=== PATIENT | male | born 1990 | race African-American/Black ===

== ENCOUNTER 2022-10-09 01:02 | Emergency (ER) | payer SELFPAY ==
[2022-10-09 01:16] VITALS: BP 137/92; PULSE 119; RESP 18; TEMP 36.6; O2SAT 95; BMI 25.9
--- NOTE | 2022-10-09 02:19 | ED.MALEGU ---
HPI - Male Genitourinary General Chief complaint: Urogenital-Male Stated complaint: Medical/personal? Time Seen by Provider: 10/09/22 01:24 Source: patient Mode of arrival: ambulatory History of Present Illness HPI Narrative: 32-year-old male who has been having unprotected sex with a new partner for 5 days and states that approximately 2 days ago he began having burning on urination and noted a penile discharge and denies any testicular scrotal discomfort or any sores on the penis. Related Data Previous Rx's Medication Instructions Recorded doxycycline monohydrate 100 mg 100 mg PO BID 7 days #14 caps 10/09/22 capsule Allergies Allergy/AdvReac Type Severity Reaction Status Date / Time No Known Allergies Allergy Verified 10/09/22 01:15 Review of Systems Review of Systems: Pertinent positives and negatives as stated in the [facility] Past Medical History Source: nursing notes reviewed Social History Social History Advance Directives: No Advance Directives Information Provided: Yes Physical Exam Vital Signs: Vital Signs: Last Vital Signs Temp 98 F 10/09/22 01:16 Pulse 119 H 10/09/22 01:16 Resp 18 10/09/22 01:16 BP 137/92 H 10/09/22 01:16 Pulse Ox 95 10/09/22 01:16 O2 Del Method Room Air 10/09/22 01:16 BMI result Body Mass Index 25.9 VITAL SIGNS: Reviewed. GENERAL: Well developed, well nourished, in no acute distress. HEAD: Normocephalic/atraumatic EYES: PERRLA, EOMI LUNGS: Normal breath sounds. No adventitious sounds or accessory muscle use. CARDIOVASCULAR: Regular rate and rhythm without noted murmurs ABDOMEN: Soft, non-tender, non-distended with bowel sounds. SKIN: Inspection of the skin reveals no rashes NEUROLOGIC: Alert and oriented x 4. Strength and sensation to light touch were grossly intact x 4. Medical Decision Making Medical Decision Making MDM Narrative: 32-year-old male with history and clinical presentation most consistent with sexually transmitted infection, will obtain and urinary sample for testing of gonorrhea and chlamydia, but will otherwise empirically treat. Patient states he is already been in communication with his sexual partner. Low clinical suspicion for UTI. Patient will receive empiric treatment and was instructed to provide information so he could use the patient portal to follow-up on the results of his urine sample. Differential Diagnosis Differential Diagnoses: The differential diagnosis associated with the presentation includes Please see the discussion above Lab Data MDM Lab Attestation statement: I reviewed the patient's lab results. These results are pending Discharge Plan Discharge Clinical Impression: Urethritis Patient Disposition: Home, Self-Care Instructions: Sexually Transmitted Diseases (ED), Male Condom Use (ED), Safe Sex Practices (ED) Additional Instructions: 1. You must notify your sexual partner. 2. You will need to abstain from sexual relations for 1 week while you are being treated. 3. Please complete the entire course of antibiotics as prescribed I recommend that you get instructions for accessing the patient portal so you can follow-up on your results. return to the ER for any worsening symptoms. Prescriptions: New doxycycline monohydrate 100 mg capsule 100 mg PO BID 7 Days Qty: 14 0RF
[2022-10-09] MEDS: Doxycycline Monohydrate 100 MG CAPSULE PO (03:04)
[2022-10-09] MEDS: cefTRIAXone sodium 500 MG, Lidocaine HCl 1 % MPF 1 ML IM (03:06)
[2022-10-09 03:57] LABS: CT PCR DETECTED (Not Detect.); NG PCR NOT DETECTED (Not Detect.)
== END 2022-10-09 03:11 | disposition home or self-care (01) ==
PROVIDERS: Nurse Practitioner Family; Emergency Provider Student in an Organized Health Care Education/Training Program
DX: N34.2 Other urethritis (principal); R30.0 Dysuria; R36.9 Urethral discharge, unspecified
CPT/HCPCS: 0353U; 96372; 99282; 99284; J0696

== ENCOUNTER 2022-10-11 23:08 | Emergency (ER) | payer SELFPAY ==
[2022-10-11 23:16] VITALS: BP 128/70; PULSE 107; O2SAT 98; BMI 22.5
--- NOTE | 2022-10-11 23:21 | ED.PSYCH ---
HPI - Psych General Stated Complaint: ETOH INTOXICATION,WANT CRISIS EVAL PER EMS Time Seen by Provider: 10/11/22 23:16 Source: patient and EMS Mode of arrival: EMS Limitations: no limitations History of Present Illness HPI Narrative: Patient comes to the emergency room complaining of depression and alcohol intoxication. Patient requesting to be seen by behavioral health. Patient denies suicidal homicidal ideation. Patient states that he is going through some from times, going through divorce Related Data Previous Rx's Medication Instructions Recorded doxycycline monohydrate 100 mg 100 mg PO BID 7 days #14 caps 10/09/22 capsule Allergies Allergy/AdvReac Type Severity Reaction Status Date / Time No Known Allergies Allergy Verified 10/09/22 01:15 Review of Systems Review of Systems: Constitutional : No Weight loss, No Fever, No Chills, No Night Sweats, No Fatigue, No Malaise ENT/Mouth : No Hearing loss, No Ear Pain, No Nasal Congestion, No Sinus Pain, No Hoarseness, No sore throat, No Rhinorrhea, No Swallowing Difficulty Eyes: No Eye Pain, No Swelling, No Redness, No Foreign Body, No Discharge, No Vision Changes Cardiovascular : No Chest Pain, No SOB, No Dyspnea on Exertion, No Orthopnea, No Edema, No Palpitations Respiratory : No Cough, No Sputum, No Wheezing, No Smoke Exposure, No Dyspnea Gastrointestinal : No Nausea, No Vomiting, No Diarrhea, No Constipation, No abdominal Pain, No Hematochezia, No Melena Genitourinary : no irregular bleeding, No Dysuria, No Urinary Frequency, No Hematuria, No Urinary Incontinence, No Urgency, No Flank Pain, No Urinary Flow Changes, No Hesitancy Musculoskeletal : No joint pain, No Myalgias, No Joint Swelling Skin : No Skin Lesions, No rash Neuro : No Weakness, No Numbness, No Paresthesias, No Loss of Consciousness, No Dizziness, No Headache Psych : No anxiety, complaining of depression, denies suicidal or homicidal ideation, admits to drinking alcohol today Heme/Lymph: No Bruising, No Bleeding,No Lymphadenopathy Endocrine : No Polyuria, No Polydipsia, No Temperature Intolerance Physical Exam Const: Other: Appearance: Alert. Oriented X3. No acute distress. Eyes: Pupils equal, round and reactive to light. ENT: Pharynx normal. Neck: Normal inspection. Neck supple. No lymph nodes noted. No crepitus CVS: Normal heart rate and rhythm. Pulses normal. Normal S1 and S2 Respiratory: No respiratory distress. Breath sounds normal. No Wheezing. No rales Abdomen: Soft and nontender. No rigidity. No distention. Skin: Skin warm and dry. Normal skin color. Normal skin turgor. Extremities: No lower extremity edema. No Lacerations. No Rash Neuro: Oriented X 3. No motor deficit. No sensory deficit. Moving all extremities. No slurred speech. CN 2 through 12 grossly intact Psych: calm, cooperative, teary Course Course Course Narrative: -all of patient's labs pending -patient is not suicidal or homicidal, patient is calm and cooperative, not indicated -care team consult pending -physician observation started at 23:23 Medical Decision Making Differential Diagnosis Differential Diagnoses: The differential diagnosis associated with the presentation includes (Anxiety, depression, alcohol intoxication) Admission/Observation Consideration of admission/observation: Escalation of care including admission/observation considered (Patient will be under observation until seen and cleared by the care team) Discharge Plan Discharge Clinical Impression: Depression, Alcohol intoxication Patient Disposition: Still a Patient Prescriptions: No Action doxycycline monohydrate 100 mg capsule 100 mg PO BID 7 Days Qty: 14 0RF
[2022-10-11 23:35] VITALS: BP 122/96; PULSE 108; RESP 18; TEMP 37.1; O2SAT 100
[2022-10-11 23:55] LABS: MANUAL DIFF FLAG NO
[2022-10-11 23:56] LABS: Basophils Percent Auto 0.5 % (0-2); Eosinophils Absolute Auto 0.2 X10*3/uL (0.0-0.4); Eosinophils Percent Auto 6.2 % (0-4); Hematocrit 39.7 % (42.0-52.0); Hemoglobin 13.3 g/dl (14.0-18.0); Imm Gran Abs Auto 0.01 X10*3/uL (0.00-0.03); Imm Gran Pct Auto 0.3 % (0.0-0.4); Lymphocytes Absolute Auto 1.7 X10*3/uL (1.2-4.9); Lymphocytes Percent Auto 44.9 % (20-40); Mean Corpuscular HGB Conc 33.5 g/dl (31.0-36.0); Mean Corpuscular Hemoglobin 29.2 pg (27.0-33.0); Mean Corpuscular Volume 87.3 fL (80.0-98.0); Mean Platelet Volume 8.7 fL (9.4-12.4); Monocytes Absolute Auto 0.4 X10*3/uL (0.1-1.2); Neutrophils Absolute Auto 1.4 x10*3/uL (2.0-8.3); Neutrophils Percent Auto 38.1 % (45-73); Platelet Count 244 X10*3/uL (160-400); Red Blood Count 4.55 X10*6/uL (4.60-5.80); Red Cell Distribution Width 14.1 % (11.0-16.0); White Blood Count 3.7 X10*3/uL (4.8-10.8)
[2022-10-12 00:13] LABS: Alanine Aminotransferase 12 U/L (0-40); Albumin Level 4.3 g/dL (3.5-5.0); Alkaline Phosphatase 73 U/L (39-117); Anion Gap 15 (12-20); Aspartate Amino Transferase 30 U/L (5-37); Bilirubin Direct 0.4 mg/dL (0.0-0.5); Bilirubin Total 0.8 mg/dL (0.0-1.0); Blood Urea Nitrogen 10 mg/dL (9-16); Calcium 8.8 mg/dL (8.4-10.2); Carbon Dioxide 23 mmol/L (22-29); Chloride 106 mmol/L (96-108); Creatinine Clr Calc Pharmacy 113.3; Estimated Glomerular Filt Rate > 60; Ethanol 271 mg/dL; Glucose Random 117 mg/dL (60-115); Potassium 3.3 mmol/L (3.3-5.1); Sodium 141 mmol/L (135-145); Total Protein 7.5 g/dL (6.5-8.0)
[2022-10-12 00:51] LABS: Amphetamine Screen Urine Not Detected (Not Detect); Barbiturates, Urine Not Detected (Not Detect); Benzodiazepines Screen Urine Not Detected (Not Detect); Cannabinoid Screen Urine POSITIVE (Not Detect); Cocaine Screen Urine Not Detected (Not Detect); Fentanyl, urine Not Detected (Not Detect); Opiate Screen Urine Not Detected (Not Detect); Phencyclidine Screen Urine Not Detected (Not Detect)
--- NOTE | 2022-10-12 03:12 | PC.NURSE ---
This RN assumed care of pt at 0300. Pt changed over, belongings secured in locker 5 in pod. Pt verbalizes being upset about phone being taken away. This RN assured patient it would not get lost and that it would remain in the locker until d/c. Pt continues to verbalize upset but agreeable to keeping phone in locker at this time. Pt calm and cooperative, offers no complaints to this RN. Provided with sandwich and water. Now resting in bed, encouraged to get some rest. respirations even and unlabored, skin pwd, no apparent distress. Pt refusing vital signs, stating I'll get that done in the morning . Pt also refused to sign belongings list stating I need some time to think it over before signing a legal document
--- NOTE | 2022-10-12 04:15 | PC.NURSE ---
pt sleeping at this time, respirations even and unlabored, skin pwd, no apparent distress. Continue plan of care for CARE team to evaluate patient in am
[2022-10-12 05:43] VITALS: RESP 17
--- NOTE | 2022-10-12 09:23 | PC.NURSE ---
patient sleeping in bed, respirations equal and unlabored.
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
--- NOTE | 2022-10-12 15:01 | MHC.RECOVSUP ---
Met with pt in [facility] who is here for TIM. Pt reports drinking about 5-6 Tall Boy beers a day for several years, pt has no history of ATS or MAT. Pt shares he is homeless at this time and cannot go live with his brother in [place] because he has an ankle monitor and cant leave the state, leading him to drink more. PT is interested in ATS at this time and a bed search is in process.
[2022-10-12 16:30] VITALS: RESP 18
--- NOTE | 2022-10-12 16:33 | PC.NURSE ---
patient has been resting in room/bed, respirations equal and unlabored. patient has remained calm and cooperative
[2022-10-13 05:52] VITALS: BP 128/84; PULSE 85; RESP 17; TEMP 37.1
--- NOTE | 2022-10-13 06:17 | PC.NURSE ---
Patient slept through the night, no distress observed/reported, behavior non concerning, asymptomatic ETOH withdrawal, med rec completed/currently not on any home medication, recovery team coordinating detox bed search, VSS, labs completed/resulted, will continue to monitor.
[2022-10-13 09:56] VITALS: BP 130/78; PULSE 64; RESP 16; TEMP 36.6; O2SAT 99
== END 2022-10-13 13:03 | disposition home or self-care (01) ==
PROVIDERS: Emergency Provider Emergency Medicine
DX: F33.1 Major depressive disorder, recurrent, moderate (principal); F10.129 Alcohol abuse with intoxication, unspecified; Y90.9 Presence of alcohol in blood, level not specified; Z79.899 Other long term (current) drug therapy
CPT/HCPCS: 36415; 80048; 80076; 80307; 85025; 99285

== ENCOUNTER 2022-10-22 22:27 | Emergency (ER) | payer MEDICAID, SELFPAY ==
[2022-10-22 22:49] VITALS: BP 110/73; PULSE 88; RESP 18; TEMP 36.7; O2SAT 99; BMI 25.7
--- NOTE | 2022-10-23 01:59 | ED.EXTPRO ---
HPI - Extremity Problem General Chief complaint: Extremity Problem Stated complaint: blisters on feet Time Seen by Provider: 10/23/22 01:51 Source: patient Mode of arrival: ambulatory History of Present Illness HPI Narrative: 32-year-old male with complaint of pain to his bilateral pinky toes due to increased walking. He denies any traumatic injury Related Data Home Medications Medication Instructions Recorded Confirmed No Known Home Meds 10/12/22 10/12/22 Allergies Allergy/AdvReac Type Severity Reaction Status Date / Time shellfish derived Allergy Anaphylaxis Verified 10/22/22 22:48 Review of Systems Review of Systems: Pertinent positives and negatives as stated in HPI [facility] Past Medical History Source: nursing notes reviewed Social History Social History Alcohol intake: current Alcohol intake frequency: 3 or more drinks per day Substance Use Type: Marijuana Advance Directives: No Advance Directives Information Provided: No Physical Exam Vital Signs: Vital Signs: Last Vital Signs Temp 98.0 F 10/22/22 22:49 Pulse 88 10/22/22 22:49 Resp 18 10/22/22 22:49 BP 110/73 10/22/22 22:49 Pulse Ox 99 10/22/22 22:49 O2 Del Method Room Air 10/22/22 22:49 BMI result Body Mass Index 25.7 VITAL SIGNS: Reviewed. GENERAL: Well developed, well nourished, in no acute distress. HEAD: Normocephalic/atraumatic EYES: PERRLA, EOMI EARS: Ext canals without abnormality NOSE: Nares patent bilateral OROPHARYNX: no oral lesions noted, posterior pharynx clear NECK: Supple, no adenopathy LUNGS: Normal breath sounds. No adventitious sounds or accessory muscle use. SpO2<99> CARDIOVASCULAR: Regular rate and rhythm without noted murmurs ABDOMEN: Soft, non-tender, non-distended with bowel sounds. Bilateral feet have calluses the medial aspect of the small toes that likely started as blisters. There is no erythema/induration or purulence drainage. NEUROLOGIC: Alert and oriented x 4. Strength and sensation to light touch were grossly intact x 4. Medical Decision Making Medical Decision Making MDM Narrative: 32-year-old male history and clinical presentation consistent with toe blisters that are gradually resolving and have turn into calluses, I folded gauze and half in place between the and 4th toes for padding on both sides. He is otherwise discharged home. Discharge Plan Discharge Clinical Impression: Callus of toe Patient Disposition: Home, Self-Care Instructions: Blister (ED) Additional Instructions: Return to the ER for any worsening symptoms. Prescriptions: No Action No Known Home Meds
[2022-10-23 04:00] VITALS: BP 113/75; PULSE 80; RESP 16; TEMP 36.2; O2SAT 98
[2022-10-23 05:41] VITALS: BP 122/77; PULSE 79; RESP 16; TEMP 36.2; O2SAT 98
== END 2022-10-23 06:49 | disposition home or self-care (01) ==
PROVIDERS: Emergency Provider Student in an Organized Health Care Education/Training Program
DX: L84 Corns and callosities (principal)
CPT/HCPCS: 99282; 99283

== ENCOUNTER 2022-10-24 00:34 | Emergency (ER) | payer MEDICAID, SELFPAY ==
[2022-10-24 00:52] VITALS: BP 134/68; PULSE 103; RESP 18; TEMP 37.2; O2SAT 97; BMI 25.7
[2022-10-24 01:55] LABS: Hematocrit 35.1 % (42.0-52.0); Hemoglobin 11.6 g/dl (14.0-18.0); Mean Corpuscular Hemoglobin 29.4 pg (27.0-33.0); Mean Corpuscular Volume 88.9 fL (80.0-98.0); Mean Platelet Volume 8.7 fL (9.4-12.4); Platelet Count 260 X10*3/uL (160-400); Red Blood Count 3.95 X10*6/uL (4.60-5.80); Red Cell Distribution Width 15.1 % (11.0-16.0)
--- NOTE | 2022-10-24 01:56 | ED_ITS ---
HPI - Psych General Chief Complaint: Psychiatric Symptoms Stated Complaint: SI Time Seen by Provider: 10/24/22 01:43 Source: patient Mode of arrival: ambulatory Limitations: no limitations History of Present Illness HPI Narrative: Patient comes to the emergency room complaining of anger, anxiety, depression. Earlier in triage, patient stated ?I am going to kill everyone?. Patient states that he was very angry and he is in minute. Patient states that he would like to see behavioral health and help him with his anxiety/anger and depression. Patient considering going to divorce with his of 8 years per Related Data Home Medications Medication Instructions Recorded Confirmed No Known Home Meds 10/24/22 10/24/22 Allergies Allergy/AdvReac Type Severity Reaction Status Date / Time shellfish derived Allergy Anaphylaxis Verified 10/22/22 22:48 Review of Systems 2 Review of Systems: Constitutional : No Weight loss, No Fever, No Chills, No Night Sweats, No Fatigue, No Malaise ENT/Mouth : No Hearing loss, No Ear Pain, No Nasal Congestion, No Sinus Pain, No Hoarseness, No sore throat, No Rhinorrhea, No Swallowing Difficulty Eyes: No Eye Pain, No Swelling, No Redness, No Foreign Body, No Discharge, No Vision Changes Cardiovascular : No Chest Pain, No SOB, No Dyspnea on Exertion, No Orthopnea, No Edema, No Palpitations Respiratory : No Cough, No Sputum, No Wheezing, No Smoke Exposure, No Dyspnea Gastrointestinal : No Nausea, No Vomiting, No Diarrhea, No Constipation, No abdominal Pain, No Hematochezia, No Melena Genitourinary : no irregular bleeding, No Dysuria, No Urinary Frequency, No Hematuria, No Urinary Incontinence, No Urgency, No Flank Pain, No Urinary Flow Changes, No Hesitancy Musculoskeletal : No joint pain, No Myalgias, No Joint Swelling Skin : No Skin Lesions, No rash Neuro : No Weakness, No Numbness, No Paresthesias, No Loss of Consciousness, No Dizziness, No Headache Psych : No Anxiety/Panic, No Depression, complaining of anger, no SI or HI Heme/Lymph: No Bruising, No Bleeding,No Lymphadenopathy Endocrine : No Polyuria, No Polydipsia, No Temperature Intolerance PMFSH Social History Social History Alcohol intake: current Alcohol intake frequency: 3 or more drinks per day Substance Use Type: Marijuana Advance Directives: No Advance Directives Information Provided: Yes Physical Exam 2 Vital Signs: Vital Signs: Last Vital Signs Temp 98.9 F 10/24/22 00:52 Pulse 103 H 10/24/22 00:52 Resp 18 10/24/22 00:52 BP 134/68 10/24/22 00:52 Pulse Ox 97 10/24/22 00:52 O2 Del Method Room Air 10/24/22 00:52 BMI result Body Mass Index 25.7 Const: Other: Appearance: Alert. Oriented X3. No acute distress. Eyes: Pupils equal, round and reactive to light. ENT: Pharynx normal. Neck: Normal inspection. Neck supple. No lymph nodes noted. No crepitus CVS: Normal heart rate and rhythm. Pulses normal. Normal S1 and S2 Respiratory: No respiratory distress. Breath sounds normal. No Wheezing. No rales Abdomen: Soft and nontender. No rigidity. No distention. Skin: Skin warm and dry. Normal skin color. Normal skin turgor. Extremities: No lower extremity edema. No Lacerations. No Rash Neuro: Oriented X 3. No motor deficit. No sensory deficit. Moving all extremities. No slurred speech. CN 2 through 12 grossly intact Psych: calm, cooperative, normal affect Course Course Course Narrative: -all of patient's labs pending -care team consult pending -decision observation started at 02:00 -sign-out given to Dr. Donato Medical Decision Making Differential Diagnosis Differential Diagnoses: The differential diagnosis associated with the presentation includes (Anxiety, depression, anger) Admission/Observation Consideration of admission/observation: Escalation of care including admission/observation considered (Patient will be under observation until cleared by Behavioral Health) Lab Data 10/24/22 01:46 10/24/22 01:46 Labs: Lab Results 10/24/22 Range/Units 01:46 WBC 6.0 (4.8-10.8) X10*3/uL RBC 3.95 L (4.60-5.80) X10*6/uL Hgb 11.6 L (14.0-18.0) g/dl Hct 35.1 L (42.0-52.0) % MCV 88.9 (80.0-98.0) fL MCH 29.4 (27.0-33.0) pg MCHC 33.0 (31.0-36.0) g/dl RDW 15.1 (11.0-16.0) % Plt Count 260 (160-400) X10*3/uL MPV 8.7 L (9.4-12.4) fL Absolute Nucleated RBC 0.000 (0.0-0.012) X10*3/uL Nucleated RBC % (auto) 0.0 (0.0-0.2) /100WBC Discharge Plan Discharge Clinical Impression: Anger, Anxiety and depression Patient Disposition: Still a Patient Prescriptions: No Action No Known Home Meds
[2022-10-24 02:09] LABS: Ethanol 161 mg/dL
[2022-10-24 02:11] LABS: COVID-19 Test Negative (Negative); IDNOW Serial# 6674DD1D
[2022-10-24 02:12] LABS: Alanine Aminotransferase 32 U/L (0-40); Albumin Level 4.1 g/dL (3.5-5.0); Alkaline Phosphatase 77 U/L (39-117); Anion Gap 11 (12-20); Aspartate Amino Transferase 61 U/L (5-37); Bilirubin Total 0.3 mg/dL (0.0-1.0); Blood Urea Nitrogen 12 mg/dL (9-16); Calcium 9.2 mg/dL (8.4-10.2); Carbon Dioxide 27 mmol/L (22-29); Chloride 108 mmol/L (96-108); Creatinine Clr Calc Pharmacy 101.6; Estimated Glomerular Filt Rate > 60; Glucose Random 118 mg/dL (60-115); Sodium 141 mmol/L (135-145); Total Protein 6.8 g/dL (6.5-8.0)
[2022-10-24 02:27] LABS: Appearance Urine Clear; Color Urine Yellow; Glucose Urine UA Negative (Negative); Leukocyte Esterase Urine Trace (Negative); Nitrite Urine Negative (Negative); PH 5.5 (5.0-9.0); Specific Gravity - Urine 1.025 (1.005-1.025); UMIC TRIGGER UA YES; Urine Blood Negative (Negative); Urine Ketones Trace mg/dL (Negative); Urine Protein Negative (Neg-Trace)
[2022-10-24 02:37] LABS: Amphetamine Screen Urine Not Detected (Not Detect); Barbiturates, Urine Not Detected (Not Detect); Benzodiazepines Screen Urine Not Detected (Not Detect); Cannabinoid Screen Urine POSITIVE (Not Detect); Cocaine Screen Urine Not Detected (Not Detect); Fentanyl, urine Not Detected (Not Detect); Opiate Screen Urine Not Detected (Not Detect); Phencyclidine Screen Urine Not Detected (Not Detect)
[2022-10-24 03:03] LABS: Bacteria Urine None Seen (None Seen); Hyaline Casts Urine 0-2 /LPF (0-2); RBC Urine 0-2 /HPF (0-2); Squamous Epithelial Cell Urine 0-2 /HPF (0-2); WBC Urine 0-5 /HPF (0-5)
--- NOTE | 2022-10-24 06:56 | PC.NURSE ---
Patient slept through the night, no distress observed/reported, care consult ordered, pending evaluation, med rec completed/patient is currently not on any medication, VSS, patient wears GPS monitor on his right ankle, behavior non concerning, labs completed/resulted, will continue to monitor.
--- NOTE | 2022-10-24 12:46 | PC.NURSE ---
Patient came to nursing station stating he would like to talk to care team about being discharged. Patient reports he will be going to stay at his aunts house until his housing in ready in nov. Patient denies HI/SI, states was just unable to cope with having to live on the streets.
--- NOTE | 2022-10-24 15:42 | PC.NURSE ---
Calm and cooperative, ankle monitor charged, meeting with care team at this time
--- NOTE | 2022-10-24 16:58 | PC.NURSE ---
Discharge plan reviewed with patient who verbalized understanding
== END 2022-10-24 17:12 | disposition home or self-care (01) ==
PROVIDERS: Emergency Provider Emergency Medicine
DX: R45.4 Irritability and anger (principal); F41.9 Anxiety disorder, unspecified; F32.A Depression, unspecified; F12.90 Cannabis use, unspecified, uncomplicated; Z20.822 Contact with and (suspected) exposure to COVID-19
CPT/HCPCS: 36415; 80053; 80307; 81001; 85027; 87635; 99284; S9485

== ENCOUNTER 2022-12-26 02:04 | Emergency (ER) | payer MEDICAID, SELFPAY ==
[2022-12-26 02:06] VITALS: BP 121/80; PULSE 99; RESP 16; TEMP 36.2; O2SAT 96; BMI 22.9
--- NOTE | 2022-12-26 02:17 | ED.ALCOHOL ---
HPI - Alcohol General Chief Complaint: ETOH/Substance Use Stated Complaint: Relapse from Alcohol/ Med reaction Time Seen by Provider: 12/26/22 02:17 Source: patient Mode of arrival: ambulatory Limitations: no limitations History of Present Illness HPI narrative: Patient alcoholic since age of 14 was sober for 20 days while taking naltrexone received Vivitrol injection on 12/18 had few beers and liquor last night feeling nauseated feels stressed out felt suicidal yesterday not any more, without any plan asking for help for detox patient's mother of overdose at age of 54 Related Data Home Medications Medication Instructions Recorded Confirmed No Known Home Meds 10/24/22 10/24/22 Allergies Allergy/AdvReac Type Severity Reaction Status Date / Time shellfish derived Allergy Anaphylaxis Verified 10/22/22 22:48 Review of Systems Review of Systems: Yes all other systems are reviewed and are negative [facility] Social History Social History Alcohol intake: current Alcohol intake frequency: a few times a week Smoked in Last 30 Days: Yes Use of substances other than those prescribed or required for medical reasons: Yes Substance Use Type: Marijuana Substance Use Frequency: Daily Advance Directives: No Advance Directives Information Provided: No Physical Exam ED Vital Signs: Vital Signs - 24 hr 12/26/22 02:06 12/26/22 05:57 Temperature 97.1 F 98.5 F Pulse Rate 99 72 Respiratory Rate 16 20 Blood Pressure 121/80 123/60 Pulse Oximetry 96 95 Oxygen Delivery Method Room Air Room Air BMI result Body Mass Index 22.9 Appearance: Alert. Oriented X3. No acute distress. Eyes: PERRLA, No Nystagmus ENT: Pharynx normal. Oral Mucosa moist Neck: Normal inspection. Neck supple. CVS: Normal heart rate and rhythm. Pulses normal. Respiratory: No respiratory distress. Equal air entry bilateral, no wheezing/rales/rhonchi Abdomen: Soft and nontender. Bowel sounds are present, no mass palpable, no CVA tenderness Skin: Skin warm and dry. Normal skin color. Normal skin turgor. Extremities: No lower extremity edema. No calf tenderness psych: Feels depressed currently not feeling suicidal but would like to talk to therapist, no plan Neuro: Oriented X 3. No motor deficit. No sensory deficit.No cerebellar signs , cranial nerves II-XII intact Medical Decision Making Medical Decision Making [facility] Narrative: Patient with alcohol abuse. Abernathy suicidal at one time not anymore like to go to detox and talk to therapist. Will get care Team consult. Patient medically cleared 09:19 I assumed care of this patient from my colleague, Dr. Dannielle Reis at 07:00 hours. The patient was evaluated by our oil recovery unit operator. Apparently the patient had a 1 time slipped and his alcohol use and does not want to go to detox program, the patient is no longer suicidal. The patient will be discharged home. Lab Data [facility] Lab Attestation statement: I reviewed the patient's lab results. 12/26/22 03:28 12/26/22 03:28 Labs: Lab Results 12/26/22 Range/Units 03:28 WBC 6.2 (4.8-10.8) X10*3/uL RBC 4.32 L (4.60-5.80) X10*6/uL Hgb 12.7 L (14.0-18.0) g/dl Hct 38.4 L (42.0-52.0) % MCV 88.9 (80.0-98.0) fL MCH 29.4 (27.0-33.0) pg MCHC 33.1 (31.0-36.0) g/dl RDW 13.9 (11.0-16.0) % Plt Count 217 (160-400) X10*3/uL MPV 8.4 L (9.4-12.4) fL Immature Gran % (Auto) 0.2 (0.0-0.4) % Neut % (Auto) 62.3 (45-73) % Lymph % (Auto) 27.2 (20-40) % [place] % (Auto) 5.8 (2-11) % Eos % (Auto) 4.0 (0-4) % Baso % (Auto) 0.5 (0-2) % Lymph # (Auto) 1.7 (1.2-4.9) X10*3/uL [place] # (Auto) 0.4 (0.1-1.2) X10*3/uL Eos # (Auto) 0.3 (0.0-0.4) X10*3/uL Baso # (Auto) 0.0 (0.0-0.2) X10*3/uL Abs Immat Gran (auto) 0.01 (0.00-0.03) X10*3/uL Absolute Neuts (auto) 3.9 (2.0-8.3) x10*3/uL Absolute Nucleated RBC 0.000 (0.0-0.012) X10*3/uL Nucleated RBC % (auto) 0.0 (0.0-0.2) /100WBC Sodium 145 (135-145) mmol/L Potassium 3.8 D (3.3-5.1) mmol/L Chloride 108 (96-108) mmol/L Carbon Dioxide 28 (22-29) mmol/L Anion Gap 13 (12-20) BUN 12 (9-16) mg/dL Creatinine 0.85 (0.5-1.4) mg/dL Estim Creat Clear Calc 143.7 Estimated GFR > 60 Random Glucose 102 (60-115) mg/dL Calcium 8.7 (8.4-10.2) mg/dL Magnesium 2.1 (1.6-2.6) mg/dL Total Bilirubin 0.3 (0.0-1.0) mg/dL AST 23 (5-37) U/L ALT 14 (0-40) U/L Alkaline Phosphatase 78 (39-117) U/L Total Protein 7.0 (6.5-8.0) g/dL Albumin 4.1 (3.5-5.0) g/dL Lipase 9 (8-78) U/L Urine Opiates Screen Not Detected (Not Detect) Urine Fentanyl Screen Not Detected (Not Detect) Ur Barbiturates Screen Not Detected (Not Detect) Ur Phencyclidine Scrn Not Detected (Not Detect) Ur Amphetamines Screen Not Detected (Not Detect) U Benzodiazepines Scrn Not Detected (Not Detect) Urine Cocaine Screen Not Detected (Not Detect) U Marijuana (THC) Screen POSITIVE H (Not Detect) Ethyl Alcohol 159 mg/dL Medications Administered Discontinued Medications Generic Name Dose Route Start Last Admin Trade Name Freq PRN Reason Stop Dose Admin Ondansetron HCl 4 mg 12/26/22 02:37 12/26/22 02:57 Ondansetron Odt 4 Mg Tab.Rapdis TRANSLINGU 12/26/22 02:38 4 mg ONCE ONE Administration Discharge Plan Discharge Clinical Impression: Alcoholic intoxication, Depression, History of suicidal ideation Patient Disposition: Home, Self-Care Instructions: Abuse of Alcohol (ED) Additional Instructions: Your evaluated by our oil recovery unit operator. Please follow their instructions If you feel like you are going to hurt yourself or hurt anyone else then please return to the emergency department and we can help you with these feelings Follow-up with your doctor in 2 days. Please return to the emergency department if your symptoms get worse or if you develop any symptoms that are concerning to you. Prescriptions: No Action No Known Home Meds
--- NOTE | 2022-12-26 02:49 | PC.NURSE ---
pt coming from home. a&ox4, respirations even and unlabored. pt reports being on medication to stop alcohol consumption and reports having a drink on the medication and now reports nausea and abdominal pain. pt reports feeling disappointed in himself for drinking on the medication. pt reports prior to arrival to the ED, he was having thoughts of self harm without a plan. pt currently denies thoughts of self harm, SI/HI. pt reports he would like to speak to care team about depression and about help for alcohol dependence. pt changed over with security at this time. no sitter at this time, charge operator and provider aware.
[2022-12-26] MEDS: Ondansetron ODT 4 MG TAB.RAPDIS TRANSLINGU (02:57)
[2022-12-26 03:33] LABS: MANUAL DIFF FLAG NO
[2022-12-26 03:34] LABS: Basophils Percent Auto 0.5 % (0-2); Eosinophils Absolute Auto 0.3 X10*3/uL (0.0-0.4); Hematocrit 38.4 % (42.0-52.0); Hemoglobin 12.7 g/dl (14.0-18.0); Imm Gran Abs Auto 0.01 X10*3/uL (0.00-0.03); Imm Gran Pct Auto 0.2 % (0.0-0.4); Lymphocytes Absolute Auto 1.7 X10*3/uL (1.2-4.9); Lymphocytes Percent Auto 27.2 % (20-40); Mean Corpuscular HGB Conc 33.1 g/dl (31.0-36.0); Mean Corpuscular Hemoglobin 29.4 pg (27.0-33.0); Mean Corpuscular Volume 88.9 fL (80.0-98.0); Mean Platelet Volume 8.4 fL (9.4-12.4); Monocytes Absolute Auto 0.4 X10*3/uL (0.1-1.2); Monocytes Percent Auto 5.8 % (2-11); Neutrophils Absolute Auto 3.9 x10*3/uL (2.0-8.3); Neutrophils Percent Auto 62.3 % (45-73); Platelet Count 217 X10*3/uL (160-400); Red Blood Count 4.32 X10*6/uL (4.60-5.80); Red Cell Distribution Width 13.9 % (11.0-16.0); White Blood Count 6.2 X10*3/uL (4.8-10.8)
[2022-12-26 03:42] LABS: Amphetamine Screen Urine Not Detected (Not Detect); Barbiturates, Urine Not Detected (Not Detect); Benzodiazepines Screen Urine Not Detected (Not Detect); Cannabinoid Screen Urine POSITIVE (Not Detect); Cocaine Screen Urine Not Detected (Not Detect); Fentanyl, urine Not Detected (Not Detect); Opiate Screen Urine Not Detected (Not Detect); Phencyclidine Screen Urine Not Detected (Not Detect)
[2022-12-26 03:48] LABS: Alanine Aminotransferase 14 U/L (0-40); Albumin Level 4.1 g/dL (3.5-5.0); Alkaline Phosphatase 78 U/L (39-117); Anion Gap 13 (12-20); Aspartate Amino Transferase 23 U/L (5-37); Bilirubin Total 0.3 mg/dL (0.0-1.0); Blood Urea Nitrogen 12 mg/dL (9-16); Calcium 8.7 mg/dL (8.4-10.2); Carbon Dioxide 28 mmol/L (22-29); Chloride 108 mmol/L (96-108); Creatinine Clr Calc Pharmacy 143.7; Estimated Glomerular Filt Rate > 60; Ethanol 159 mg/dL; Glucose Random 102 mg/dL (60-115); Lipase 9 U/L (8-78); Magnesium 2.1 mg/dL (1.6-2.6); Potassium 3.8 mmol/L (3.3-5.1); Sodium 145 mmol/L (135-145)
--- NOTE | 2022-12-26 04:56 | PC.NURSE ---
pt placed on bedside monitor, pt normal sinus on tele [id number]. pt denies hx of alcohol withdrawl.
[2022-12-26 05:57] VITALS: BP 123/60; PULSE 72; RESP 20; TEMP 36.9; O2SAT 95
--- NOTE | 2022-12-26 09:44 | PC.NURSE ---
pt denies SI/HI/SHB. pt reports feeling crappy about drinking knowing that if he drinks while on Vivtrol he will get sick. offered pt resources for ANALIA/Silvestre. pt spoke with manager recovery brianna and received resources from him as well.
--- NOTE | 2022-12-26 10:10 | MHC.RECOVSUP ---
Met with pt in ED18 who is here for TIM/ Pt reports having been sober for 20 days until last night when his friends pressured him to drink. Pt states he is feeling fine but is just upset for drinking. At this time pt is not interested in ATS or any supports but might consider reaching out to a horse riding coach or instructor.
== END 2022-12-26 09:43 | disposition home or self-care (01) ==
PROVIDERS: Internal Medicine; Emergency Provider Emergency Medicine Emergency Medical Services
DX: F10.220 Alcohol dependence with intoxication, uncomplicated (principal); Y90.6 Blood alcohol level of 120-199 mg/100 ml; R11.0 Nausea; F12.90 Cannabis use, unspecified, uncomplicated; F32.A Depression, unspecified; Z91.51 Personal history of suicidal behavior
CPT/HCPCS: 36415; 80053; 80307; 83690; 83735; 85025; 99284

== ENCOUNTER 2024-02-12 02:23 | Emergency (ER) | payer MEDICAID, SELFPAY ==
[2024-02-12 02:34] VITALS: BP 136/106; PULSE 102; RESP 16; TEMP 37.2; O2SAT 99; BMI 25.0
--- NOTE | 2024-02-12 03:00 | MHC.EDTECH ---
Patient was brought from the waiting room, changed into hospital attire,patient is calm and cooperative at this time,call jones in reach
[2024-02-12 04:00] VITALS: BP 121/88; PULSE 88; RESP 18; TEMP 36.8; O2SAT 99
--- NOTE | 2024-02-12 06:14 | ED_ITS ---
HPI - Alcohol General Chief Complaint: ETOH/Substance Use Stated Complaint: ETOH Time Seen by Provider: 02/12/24 06:00 Source: patient Mode of arrival: ambulatory Limitations: no limitations History of Present Illness ED Provider: Dr. Abbey Springer HPI narrative: Patient comes to the emergency room complaining of alcohol intoxication. Patient was celebrating his birthday, drank a lot of alcohol. Patient was driving drunk. Patient decided to make a stop at [facility] and sleep it off. Patient states that he did not feel safe arriving drunk at his house, patient did not mentioned anything specific but seems to be having trouble at home with his father. Patient states that he feels safer sleeping it off here at [facility]. Patient denies drug use, denies SI or HI. Patient states that he did not fall and did not crash his car Related Data Home Medications ?Medication ?Instructions ?Recorded ?Confirmed No Known Home Meds 10/24/22 10/24/22 Allergies Allergy/AdvReac Type Severity Reaction Status Date / Time shellfish derived Allergy Anaphylaxis Verified 02/12/24 02:36 Review of Systems Review of Systems: Constitutional : No Weight loss, No Fever, No Chills, No Night Sweats, No Fatigue, No Malaise ENT/Mouth : No Hearing loss, No Ear Pain, No Nasal Congestion, No Sinus Pain, No Hoarseness, No sore throat, No Rhinorrhea, No Swallowing Difficulty Eyes: No Eye Pain, No Swelling, No Redness, No Foreign Body, No Discharge, No Vision Changes Cardiovascular : No Chest Pain, No SOB, No Dyspnea on Exertion, No Orthopnea, No Edema, No Palpitations Respiratory : No Cough, No Sputum, No Wheezing, No Smoke Exposure, No Dyspnea Gastrointestinal : No Nausea, No Vomiting, No Diarrhea, No Constipation, No abdominal Pain, No Hematochezia, No Melena Genitourinary : no irregular bleeding, No Dysuria, No Urinary Frequency, No Hematuria, No Urinary Incontinence, No Urgency, No Flank Pain, No Urinary Flow Changes, No Hesitancy Musculoskeletal : No joint pain, No Myalgias, No Joint Swelling Skin : No Skin Lesions, No rash Neuro : No Weakness, No Numbness, No Paresthesias, No Loss of Consciousness, No Dizziness, No Headache Psych : No Anxiety/Panic, No Depression, No SI/HI/AH/VH, admits to drinking heavily Heme/Lymph: No Bruising, No Bleeding,No Lymphadenopathy Endocrine : No Polyuria, No Polydipsia, No Temperature Intolerance PMFSH Past Medical History Medical History Alcohol abuse Social History Social History Alcohol intake: current Alcohol intake frequency: a few times a week Substance Use Type: Marijuana Advance Directives: No Advance Directives Information Provided: Yes Do you have a plan to hurt others: No Plan Physical Exam ED Vital Signs: Vital Signs - 24 hr 02/12/24 02:34 02/12/24 04:00 Temperature 98.9 F 98.3 F Pulse Rate 102 H 88 Respiratory Rate 16 18 Blood Pressure 136/106 H 121/88 Pulse Oximetry 99 99 Oxygen Delivery Method Room Air Room Air BMI result Body Mass Index 25.0 Const Other: Appearance: Alert. intoxicated Eyes: Pupils equal, round and reactive to light. ENT: Pharynx normal. Neck: Normal inspection. Neck supple. No lymph nodes noted. No crepitus CVS: Normal heart rate and rhythm. Pulses normal. Normal S1 and S2 Respiratory: No respiratory distress. Breath sounds normal. No Wheezing. No rales Abdomen: Soft and nontender. No rigidity. No distention. Skin: Skin warm and dry. Normal skin color. Normal skin turgor. Extremities: No lower extremity edema. No Lacerations. No Rash Neuro: intoxicated Psych: calm, cooperative, intoxicated Medical Decision Making Medical Decision Making [facility]DM Narrative: patient is not SI, no HI, patient's vitals are stable, no signs of trauma. No vomiting, no diarrhea. Patient, cooperative. Patient is still Intoxicated. Plan: Metabolize to freedom Patient is not SI or HI, section 12 is not indicated Differential Diagnosis Differential Diagnoses: The differential diagnosis associated with the presentation includes ( alcohol abuse, polysubstance abuse) Admission/Observation Consideration of admission/observation: Escalation of care including admission/observation considered ( patient is under physician observation waiting to become sober and to be discharged.) Discharge Plan Discharge Clinical Impression: Alcoholic intoxication Patient Disposition: Still a Patient Instructions: Alcohol Intoxication (ED) Additional Instructions: Please follow-up with your primary care physician tomorrow. If you have any worsening or new symptoms, please return to the emergency room or call 911 Prescriptions: No Action No Known Home Meds Print Language: Telugu
[2024-02-12 10:44] VITALS: BP 138/87; PULSE 101; RESP 16; TEMP 36.8; O2SAT 99
== END 2024-02-12 10:45 | disposition home or self-care (01) ==
PROVIDERS: Emergency Provider Emergency Medicine
DX: F10.120 Alcohol abuse with intoxication, uncomplicated (principal); Y90.9 Presence of alcohol in blood, level not specified
CPT/HCPCS: 99284

== ENCOUNTER 2024-11-11 01:09 | Emergency (ER) | payer MEDICAID, SELFPAY ==
[2024-11-11 01:13] VITALS: BP 158/90; PULSE 113; RESP 20; TEMP 36.9; O2SAT 96; BMI 25.7
--- OUTSIDE RECORDS SUMMARY | 2024-11-11 01:27 | XMS_ITS | Clinical Summary ---
Author Organization [employer] Address [address] [place] [address] Care Team Providers Care Player Development Executive Name Role Phone Unavailable Primary Care Provider Unavailabl e Social History Tobacco Use Types Packs/Day Years Used Date Smoking Tobacco: Never Assessed Sex and Gender Information Value Date Recorded Sex Assigned at Not on file Legal Sex Male 1:44 PM EST Gender Identity Not on file Sexual Orientation Not on file Plan of Treatment Health Maintenance Due Date Last Done Comments Depression Screening 1988 HIV Screening 1988 Lipid Panel 1988 SDOH Screening 1988 Disability Screening 1988 Alcohol/Substance Use Screening 2000 Tobacco Screening 2000 Family Planning (PISQ) 02/10/2003 HPV Vaccines (1 - Male 3-dos e series) 02/10/2003 Hepatitis C Screening 02/10/2006 DTaP/Tdap/Td Vaccines (1 - Tdap) 02/10/2007 Hepatitis B Vaccines (1 of 3 - 19+ 3-dose series) 02/10/2007 COVID-19 Vaccine (1 - 2023-2 5 season) 2024 Influenza Vaccine (#1) 2024 Zoster Vaccines (1 of 2) 02/10/2038 RSV Patients and Pa tients Aged 60 years or older (1 - 1-dose 75+ series) 02/10/2063 HIB Vaccines Aged Out No longer eligi ble based on patient's age to complete this topic Hepatitis A Vaccines Aged Out No long er eligible based on patient's age to complete this topic IPV Vaccines Aged Out No longer eligi ble based on patient's age to complete this topic Meningococcal B Vaccine Aged Out No l onger eligible based on patient's age to complete this topic Meningococcal Vaccine Aged Out No gary lay eligible based on patient's age to complete this topic Pneumococcal Vaccine: Pediat rics (0 to 5 Years) and At-Risk Patients (6 to 49) Years Aged Out No longer eligible b ased on patient's age to complete this topic RSV under 20 months Aged Out No longe r eligible based on patient's age to complete this topic Rotavirus Vaccines Aged Out No longer eligible based on patient's age to complete this topic
--- OUTSIDE RECORDS SUMMARY | 2024-11-11 01:27 | XMS_ITS | Clinical Summary ---
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 Name Role Phone Unavailable Primary Care Provider Unavailabl e Social History Tobacco Use Types Packs/Day Years Used Date Smoking Tobacco: Never Assessed Sex and Gender Information Value Date Recorded Sex Assigned at Not on file Legal Sex Male 8:19 PM EST Gender Identity Not on file Sexual Orientation Not on file Plan of Treatment Health Maintenance Due Date Last Done Comments DTaP,Tdap,and Td Vaccines (1 - Tdap) 02/10/2007 Hepatitis B Vaccines (1 of 3 - 19+ 3-dose series) 02/10/2007 Cholesterol Screening (Lipid Panel) 03/11/2023 HIV Screening 03/11/2023 Hepatitis C Screening 03/11/2023 Social Influencers of Health Screening 03/11/2023 Depression Screening 02/16/2024 COVID-19 Vaccine (2023-2 5 season) 2024 Influenza Vaccine (#1) 2024 HIB Vaccines Aged Out No longer eligi ble based on patient's age to complete this topic HPV Vaccines Aged Out No longer eligi ble based on patient's age to complete this topic Hepatitis A Vaccines Aged Out No long er eligible based on patient's age to complete this topic IPV Vaccines Aged Out No longer eligi ble based on patient's age to complete this topic MMR Vaccines Aged Out No longer eligi ble based on patient's age to complete this topic Meningococcal ACWY Vaccine Aged Out N o longer eligible based on patient's age to complete this topic Meningococcal B Vaccine Aged Out No l onger eligible based on patient's age to complete this topic Pneumococcal Vaccine: Pediat rics (0 to 5 Years) and At-Risk Patients (6 to 49 Years) Aged Out No longer eligible b ased on patient's age to complete this topic RSV Immunization Patients Un [place] 20 months Aged Out No longer eligible b ased on patient's age to complete this topic Varicella Vaccines Aged Out No longer eligible based on patient's age to complete this topic
--- NOTE | 2024-11-11 01:37 | ECG_ITS ---
Test Reason : WEAKNESS Blood Pressure : */* mmHG Vent. Rate : 105 BPM Atrial Rate : 105 BPM P-R Int : 168 ms QRS Dur : 86 ms QT Int : 344 ms P-R-T Axes : 56 43 43 degrees QTcB Int : 454 ms Sinus tachycardia Minimal voltage criteria for LVH, may be normal variant ( Sokolow-Randall ) Borderline ECG No previous ECGs available Referred By: Abbey Springer Electronically Signed By: Cuauhtemoc Flood
--- NOTE | 2024-11-11 01:40 | ED.GENADULT ---
HPI - General Adult General Chief complaint: General Medical Stated complaint: Exhaustion Time Seen by Provider: 11/11/24 01:27 Source: patient Mode of arrival: ambulatory Limitations: no limitations History of Present Illness ED Provider: Dr. Abbey Springer HPI narrative: Patient comes to the emergency room complaining of feeling fatigued and exhausted all the time for about a month. Patient states that he has been working 3 different jobs and does not get enough rest. Patient states that he is just looking for reassurance, basic lab work to make sure that he is okay. Patient admits that he uses marijuana and drinks a lot of alcohol. Denies any abdominal pain, denies nausea vomiting or diarrhea, denies black stool Related Data Home Medications ?Medication ?Instructions ?Recorded ?Confirmed No Known Home Meds 10/24/22 10/24/22 Allergies Allergy/AdvReac Type Severity Reaction Status Date / Time shellfish derived Allergy Anaphylaxis Verified 11/11/24 01:14 Review of Systems Review of Systems: Constitutional : No Weight loss, No Fever, No Chills, No Night Sweats, complaining of chronic fatigue ENT/Mouth : No Hearing loss, No Ear Pain, No Nasal Congestion, No Sinus Pain, No Hoarseness, No sore throat, No Rhinorrhea, No Swallowing Difficulty Eyes: No Eye Pain, No Swelling, No Redness, No Foreign Body, No Discharge, No Vision Changes Cardiovascular : No Chest Pain, No SOB, No Dyspnea on Exertion, No Orthopnea, No Edema, No Palpitations Respiratory : No Cough, No Sputum, No Wheezing, No Smoke Exposure, No Dyspnea Gastrointestinal : No Nausea, No Vomiting, No Diarrhea, No Constipation, No abdominal Pain, No Hematochezia, No Melena Genitourinary : no irregular bleeding, No Dysuria, No Urinary Frequency, No Hematuria, No Urinary Incontinence, No Urgency, No Flank Pain, No Urinary Flow Changes, No Hesitancy Musculoskeletal : No joint pain, No Myalgias, No Joint Swelling Skin : No Skin Lesions, No rash Neuro : No Weakness, No Numbness, No Paresthesias, No Loss of Consciousness, No Dizziness, No Headache Psych : No Anxiety/Panic, No Depression, No SI/HI/AH/VH, No Social Issues, Heme/Lymph: No Bruising, No Bleeding,No Lymphadenopathy Endocrine : No Polyuria, No Polydipsia, No Temperature Intolerance PMF Past Medical History Medical History Alcohol abuse Social History Social History Alcohol intake: current Alcohol intake frequency: a few times a week Substance Use Type: Marijuana Advance Directives: No Advance Directives Information Provided: No Physical Exam ED Exam Exam: Appearance: Alert. Oriented X3. No acute distress. Well-appearing Eyes: Pupils equal, round and reactive to light. ENT: Pharynx normal. Neck: Normal inspection. Neck supple. No lymph nodes noted. No crepitus CVS: Normal heart rate and rhythm. Pulses normal. Normal S1 and S2 Respiratory: No respiratory distress. Breath sounds normal. No Wheezing. No rales Abdomen: Soft and nontender. No rigidity. No distention. Skin: Skin warm and dry. Normal skin color. Normal skin turgor. Extremities: No lower extremity edema. No Lacerations. No Rash Neuro: Oriented X 3. No motor deficit. No sensory deficit. Moving all extremities. No slurred speech. CN 2 through 12 grossly intact Psych: calm, cooperative, normal affect Vital Signs: Vital Signs - 24 hr 11/11/24 01:13 Temperature 98.4 F Pulse Rate 113 H Respiratory Rate 20 Blood Pressure 158/90 H Pulse Oximetry 96 Oxygen Delivery Method Room Air BMI result Body Mass Index 25.7 Course Course Course Narrative: Patient complaining of chronic fatigue for about a month. All of patient's labs pending Medical Decision Making Medical Decision Making [facility] Narrative: My interpretation of labs: No significant abnormality in patient's hematology or chemistry, AST double than ALT, patient admits to alcohol abuse. ETOH level 181, serology negative for COVID flu Overall, patient has fatigue secondary to poor sleep habits. Patient does have 3 job Differential Diagnosis Differential Diagnoses: The differential diagnosis associated with the presentation includes (Fatigue, anemia, polysubstance abuse, electrolyte abnormality, poor sleeping habits) Lab Data [facility] Lab Attestation statement: I reviewed the patient's lab results. 11/11/24 02:40 11/11/24 02:40 Labs: Lab Results 11/11/24 Range/Units 02:40 WBC 5.1 (4.8-10.8) X10*3/uL RBC 4.54 L (4.60-5.80) X10*6/uL Hgb 13.4 L (14.0-18.0) g/dl Hct 37.8 L (42.0-52.0) % MCV 83.3 (80.0-98.0) fL MCH 29.5 (27.0-33.0) pg MCHC 35.4 (31.0-36.0) g/dl RDW 15.4 (11.0-16.0) % Plt Count 266 (160-400) X10*3/uL MPV 8.7 L (9.4-12.4) fL Immature Gran % (Auto) 0.0 (0.0-0.4) % Neut % (Auto) 55.2 (45-73) % Lymph % (Auto) 29.2 (20-40) % [place] % (Auto) 12.6 H (2-11) % Eos % (Auto) 2.2 (0-4) % Baso % (Auto) 0.8 (0-2) % Lymph # (Auto) 1.5 (1.2-4.9) X10*3/uL [place] # (Auto) 0.6 (0.1-1.2) X10*3/uL Eos # (Auto) 0.1 (0.0-0.4) X10*3/uL Baso # (Auto) 0.0 (0.0-0.2) X10*3/uL Abs Immat Gran (auto) 0.00 (0.00-0.03) X10*3/uL Absolute Neuts (auto) 2.8 (2.0-8.3) x10*3/uL Absolute Nucleated RBC 0.000 (0.0-0.012) X10*3/uL Nucleated RBC % (auto) 0.0 (0.0-0.2) /100WBC Sodium 145 (135-145) mmol/L Potassium 4.7 (3.3-5.1) mmol/L Chloride 106 (96-108) mmol/L Carbon Dioxide 27 (22-29) mmol/L Anion Gap 17 (12-20) BUN 9 (9-16) mg/dL Creatinine 1.16 (0.5-1.4) mg/dL Estim Creat Clear Calc 105.2 Estimated GFR > 60 Random Glucose 88 (60-115) mg/dL Calcium 9.0 (8.4-10.2) mg/dL Magnesium 2.3 (1.6-2.6) mg/dL Total Bilirubin 0.8 (0.0-1.0) mg/dL Direct Bilirubin 0.3 (0.0-0.5) mg/dL AST 102 H (5-37) U/L ALT 43 H (0-40) U/L Alkaline Phosphatase 67 (39-117) U/L Total Protein 7.6 (6.5-8.0) g/dL Albumin 4.8 (3.5-5.0) g/dL Ethyl Alcohol 181 mg/dL COVID-19 (MAURIZIO) Negative (Negative) COVID-19 Clin Com See Note Influenza Type A (COY) Negative (Negative) Influenza Type B (COY) Negative (Negative) Influenza A & B Note See Note Discharge Plan Discharge Clinical Impression: Chronic fatigue Patient Disposition: Home, Self-Care Instructions: Fatigue (ED) Additional Instructions: Please follow-up with your primary care physician tomorrow. If you have any worsening or new symptoms, please return to the emergency room or call 911 Prescriptions: No Action No Known Home Meds Print Language: Austrian
[2024-11-11 02:48] LABS: Hematocrit 37.8 % (42.0-52.0); Hemoglobin 13.4 g/dl (14.0-18.0); Imm Gran Abs Auto 0.00 X10*3/uL (0.00-0.03); Imm Gran Pct Auto 0.0 % (0.0-0.4); Lymphocytes Absolute Auto 1.5 X10*3/uL (1.2-4.9); MANUAL DIFF FLAG NO; Mean Corpuscular HGB Conc 35.4 g/dl (31.0-36.0); Mean Corpuscular Hemoglobin 29.5 pg (27.0-33.0); Mean Corpuscular Volume 83.3 fL (80.0-98.0); NRBC Abs Auto 0.000 X10*3/uL (0.0-0.012); NRBC Pct Auto 0.0 /100WBC (0.0-0.2); Platelet Count 266 X10*3/uL (160-400); Red Blood Count 4.54 X10*6/uL (4.60-5.80); White Blood Count 5.1 X10*3/uL (4.8-10.8)
[2024-11-11 03:02] LABS: COVID-19 Test Negative (Negative); IDNOW Serial# 55D5AD1C; IDNOW Serial# 58CA691E; Influenza B2 Negative (Negative)
[2024-11-11 03:07] LABS: Alanine Aminotransferase 43 U/L (0-40); Albumin Level 4.8 g/dL (3.5-5.0); Alkaline Phosphatase 67 U/L (39-117); Anion Gap 17 (12-20); Aspartate Amino Transferase 102 U/L (5-37); Blood Urea Nitrogen 9 mg/dL (9-16); Calcium 9.0 mg/dL (8.4-10.2); Carbon Dioxide 27 mmol/L (22-29); Chloride 106 mmol/L (96-108); Creatinine Clr Calc Pharmacy 105.2; Estimated Glomerular Filt Rate > 60; Magnesium 2.3 mg/dL (1.6-2.6); Potassium 4.7 mmol/L (3.3-5.1); Sodium 145 mmol/L (135-145); Total Protein 7.6 g/dL (6.5-8.0)
[2024-11-11 03:47] VITALS: BP 130/87; PULSE 100; RESP 16; TEMP 37.2; O2SAT 97
[2024-11-11 03:58] VITALS: BP 130/87; PULSE 100; RESP 16; TEMP 37.2; O2SAT 97
== END 2024-11-11 04:01 | disposition home or self-care (01) ==
PROVIDERS: Emergency Provider Emergency Medicine
DX: R53.83 Other fatigue (principal); R00.0 Tachycardia, unspecified; Z79.899 Other long term (current) drug therapy; Z11.52 Encounter for screening for COVID-19
CPT/HCPCS: 36415; 80048; 80076; 80307; 83735; 85025; 87502; 87635; 93005; 99283; 99284

== ENCOUNTER → 2024-11-11 01:37 | Outpatient (BNV) | payer MEDICAID, SELFPAY | PROVIDERS: Emergency Provider Emergency Medicine; Visit Provider Internal Medicine Cardiovascular Disease | DX: R00.0 Tachycardia, unspecified (principal) | CPT/HCPCS: 93010 ==

== ENCOUNTER 2024-11-11 04:27 | Emergency (ER) | payer MEDICAID, SELFPAY ==
[2024-11-11 04:35] VITALS: BP 133/84; PULSE 113; RESP 18; TEMP 37.1; O2SAT 97; BMI 25.2
--- NOTE | 2024-11-11 04:46 | ED.GENADULT ---
HPI - General Adult General Chief complaint: General Medical Stated complaint: Mental health challenges Time Seen by Provider: 11/11/24 04:45 Source: patient Mode of arrival: ambulatory Limitations: no limitations History of Present Illness ED Provider: Dr. Abbey Springer HPI narrative: Patient comes to the emergency room again. Patient was discharged less than 5 minutes ago. Patient decided to check in again, this time complaining of feeling that he is mentally not well. Patient denies SI, denies HI, denies anxiety, denies depression, denies hallucinations. Patient states that he is legally and can not get his belongings. Related Data Home Medications ?Medication ?Instructions ?Recorded ?Confirmed No Known Home Meds 10/24/22 10/24/22 Allergies Allergy/AdvReac Type Severity Reaction Status Date / Time shellfish derived Allergy Anaphylaxis Verified 11/11/24 04:40 Review of Systems Review of Systems: Constitutional : No Weight loss, No Fever, No Chills, No Night Sweats, No Fatigue, No Malaise ENT/Mouth : No Hearing loss, No Ear Pain, No Nasal Congestion, No Sinus Pain, No Hoarseness, No sore throat, No Rhinorrhea, No Swallowing Difficulty Eyes: No Eye Pain, No Swelling, No Redness, No Foreign Body, No Discharge, No Vision Changes Cardiovascular : No Chest Pain, No SOB, No Dyspnea on Exertion, No Orthopnea, No Edema, No Palpitations Respiratory : No Cough, No Sputum, No Wheezing, No Smoke Exposure, No Dyspnea Gastrointestinal : No Nausea, No Vomiting, No Diarrhea, No Constipation, No abdominal Pain, No Hematochezia, No Melena Genitourinary : no irregular bleeding, No Dysuria, No Urinary Frequency, No Hematuria, No Urinary Incontinence, No Urgency, No Flank Pain, No Urinary Flow Changes, No Hesitancy Musculoskeletal : No joint pain, No Myalgias, No Joint Swelling Skin : No Skin Lesions, No rash Neuro : No Weakness, No Numbness, No Paresthesias, No Loss of Consciousness, No Dizziness, No Headache Psych : No Anxiety/Panic, No Depression, No SI/HI/AH/VH, patient states that he is mentally not feeling well Heme/Lymph: No Bruising, No Bleeding,No Lymphadenopathy Endocrine : No Polyuria, No Polydipsia, No Temperature Intolerance [facility] Past Medical History Medical History Alcohol abuse Social History Social History Alcohol intake: current Alcohol intake frequency: a few times a week Smoked in Last 30 Days: Yes Use of substances other than those prescribed or required for medical reasons: Yes Substance Use Type: Marijuana Substance Use Frequency: Daily Advance Directives: No Physical Exam ED Exam Exam: Appearance: Alert. Oriented X3. No acute distress. Eyes: Pupils equal, round and reactive to light. ENT: Pharynx normal. Neck: Normal inspection. Neck supple. No lymph nodes noted. No crepitus CVS: Normal heart rate and rhythm. Pulses normal. Normal S1 and S2 Respiratory: No respiratory distress. Breath sounds normal. No Wheezing. No rales Abdomen: Soft and nontender. No rigidity. No distention. Skin: Skin warm and dry. Normal skin color. Normal skin turgor. Extremities: No lower extremity edema. No Lacerations. No Rash Neuro: Oriented X 3. No motor deficit. No sensory deficit. Moving all extremities. No slurred speech. CN 2 through 12 grossly intact Psych: calm, cooperative, normal affect Vital Signs: Vital Signs - 24 hr 11/11/24 04:35 11/11/24 05:20 Temperature 98.8 F 98.8 F Pulse Rate 113 H 91 Respiratory Rate 18 18 Blood Pressure 133/84 129/79 Pulse Oximetry 97 98 Oxygen Delivery Method Room Air Room Air BMI result Body Mass Index 25.2 Course Course Course Narrative: Patient to be seen by the care team. Here in Toxicology pending Patient is not SI, no HI, not psychotic or delusional, denies hallucinations. Patient admits that he drinks alcohol. ETOH 181. However, patient is clinically sober, steady ambulation, alert and oriented x3, clinically sober Medical Decision Making Medical Decision Making MDM Narrative: Patient's U tox positive for THC Patient ready to be seen by the care team Sign-out given to my colleague Dr. Dickson Lab Data Labs: Lab Results 11/11/24 Range/Units 06:03 Urine Opiates Screen Not Detected (Not Detect) Ur Buprenorphine Scrn Not Detected (Not Detect) ng/mL Ur Oxycodone Screen Not Detected (Not Detect) ng/mL Urine Methadone Screen Not Detected (Not Detect) ng/mL Urine Fentanyl Screen Not Detected (Not Detect) Ur Barbiturates Screen Not Detected (Not Detect) Ur Phencyclidine Scrn Not Detected (Not Detect) Ur Amphetamines Screen Not Detected (Not Detect) U Benzodiazepines Scrn Not Detected (Not Detect) Urine Cocaine Screen Not Detected (Not Detect) U Marijuana (THC) Screen POSITIVE H (Not Detect) Critical Care Time Critical Care Time Critical Care Time: Yes Total Critical Care Time: 35 Attestation: I have personally provided critical care time. Time includes review of lab data, radiology results, discussion with consultants, and monitoring for potential decompensation. Intervention performed as documented. Discharge Plan Discharge Clinical Impression: Fatigue Prescriptions: No Action No Known Home Meds Print Language: Syrian
[2024-11-11 05:20] VITALS: BP 129/79; PULSE 91; RESP 18; TEMP 37.1; O2SAT 98
[2024-11-11 06:18] LABS: Cannabinoid Screen Urine POSITIVE (Not Detect)
--- NOTE | 2024-11-11 06:30 | PC.NURSE ---
pt was seen and d/c by this RN less than 1 hour prior to this visit. pt was A/O x4, calm and cooperative with care, denied SI/HI, no apparent distress. pt was agreeable to d/c at that time for fatigue, workup was reassuring. pt then checked back in for mental health issues . pt denies SI/HI, but states he has a lot going on in his head and his life and needs a break to let his mind shut down and not spiral. UA obtained on this visit. care team consult placed. pt resting comfortably with no complaints at this time. pt admits to daily ETOH and marijuana uses
--- NOTE | 2024-11-11 10:06 | PC.NURSE ---
pt noted to not be in room at approximately 0900. pt nowhere to be found. pt eloped. 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
== END 2024-11-11 10:07 | disposition left against medical advice (07) ==
PROVIDERS: Emergency Medicine; Emergency Provider Emergency Medicine
DX: R53.83 Other fatigue (principal); Z51.81 Encounter for therapeutic drug level monitoring; F12.90 Cannabis use, unspecified, uncomplicated
CPT/HCPCS: 80307; 99284

== ENCOUNTER 2024-11-11 21:44 | Emergency (ER) | payer MEDICAID, SELFPAY ==
[2024-11-11 22:09] VITALS: BP 136/94; PULSE 85; O2SAT 95
[2024-11-11 22:10] VITALS: BP 136/94; PULSE 85; RESP 16; TEMP 36.6; O2SAT 96; BMI 23.7
--- OUTSIDE RECORDS SUMMARY | 2024-11-11 22:29 | XMS_ITS | Clinical Summary ---
Author Organization [facility] ity Address [address] [place] [address] Care Team Providers Care Movie Stunt Performer Name Role Phone Unavailable Primary Care Provider [...]
--- OUTSIDE RECORDS SUMMARY | 2024-11-11 22:29 | XMS_ITS | Clinical Summary ---
Author Organization [employer] Address [address] [place] [address] Care Team Providers Care Dust Handler Name Role Phone Unavailable Primary Care Provider [...]
[2024-11-12 01:19] LABS: MANUAL DIFF FLAG NO
[2024-11-12 01:20] LABS: Hematocrit 39.2 % (42.0-52.0); Hemoglobin 14.0 g/dl (14.0-18.0); Imm Gran Abs Auto 0.01 X10*3/uL (0.00-0.03); Imm Gran Pct Auto 0.2 % (0.0-0.4); Lymphocytes Absolute Auto 1.7 X10*3/uL (1.2-4.9); Mean Corpuscular HGB Conc 35.7 g/dl (31.0-36.0); Mean Corpuscular Hemoglobin 29.7 pg (27.0-33.0); Mean Corpuscular Volume 83.1 fL (80.0-98.0); NRBC Abs Auto 0.000 X10*3/uL (0.0-0.012); NRBC Pct Auto 0.0 /100WBC (0.0-0.2); Platelet Count 268 X10*3/uL (160-400); Red Blood Count 4.72 X10*6/uL (4.60-5.80); White Blood Count 5.4 X10*3/uL (4.8-10.8)
[2024-11-12 01:37] LABS: Alanine Aminotransferase 60 U/L (0-40); Albumin Level 4.7 g/dL (3.5-5.0); Alkaline Phosphatase 69 U/L (39-117); Anion Gap 15 (12-20); Aspartate Amino Transferase 128 U/L (5-37); Blood Urea Nitrogen 10 mg/dL (9-16); Calcium 8.9 mg/dL (8.4-10.2); Carbon Dioxide 25 mmol/L (22-29); Chloride 105 mmol/L (96-108); Creatinine Clr Calc Pharmacy 96.2; Estimated Glomerular Filt Rate > 60; Magnesium 2.3 mg/dL (1.6-2.6); Potassium 4.2 mmol/L (3.3-5.1); Sodium 141 mmol/L (135-145); Total Protein 7.4 g/dL (6.5-8.0)
[2024-11-12 01:48] LABS: Acetaminophen LAB < 3 mcg/mL (<30); Salicylate < 5.0 mg/dL (15-30)
[2024-11-12 01:51] LABS: Cannabinoid Screen Urine POSITIVE (Not Detect)
[2024-11-12 02:37] VITALS: BP 123/84; PULSE 89; RESP 18; TEMP 36.7; O2SAT 98
--- NOTE | 2024-11-12 02:43 | PC.NURSE ---
pt brought from ed front main to ed bed 22hall, pt resting in stretcher, no acute distress noted. awaiting care team consult
--- NOTE | 2024-11-12 05:16 | ED.GENADULT ---
HPI - General Adult General Chief complaint: General Medical Stated complaint: Psych Time Seen by Provider: 11/11/24 23:52 Source: patient Limitations: no limitations History of Present Illness ED Provider: Cinthia Urena PA-C HPI narrative: 34-year-old male with self report of anxiety, depression, alcohol use disorder, presents with emotional distress. Patient states he recently from his girlfriend, and that his anxiety and depression have worsened. When asked if the patient is having thoughts of self-harm, he states ?I love myself I won't hurt myself, but I know when I need to keep myself in check?. Related Data Home Medications ?Medication ?Instructions ?Recorded ?Confirmed No Known Home Meds 10/24/22 10/24/22 Allergies Allergy/AdvReac Type Severity Reaction Status Date / Time shellfish derived Allergy Anaphylaxis Verified 11/11/24 22:15 Review of Systems Review of Systems: Yes all other systems are reviewed and are negative Constitutional: Constitutional: Denies fatigue and Denies fever(s) Cardiovascular: Cardiovascular: Denies chest pain and Denies dyspnea Respiratory: Respiratory: Denies dyspnea Gastrointestinal: Gastrointestinal: Denies abdominal pain, Denies nausea and Denies vomiting Endocrine: Endocrine: Denies fatigue PMFSH Past Medical History Attestation statement: The following information was validated with the patient. Medical History Alcohol abuse Social History Social History Alcohol intake: current Alcohol intake frequency: a few times a week Alcohol type: hard liquor Smoked in Last 30 Days: Yes Use of substances other than those prescribed or required for medical reasons: Yes Substance Use Type: Marijuana Substance Use Frequency: Chronic Longstanding Last Used Substance: Hours (ago) Any prior treatment program specific to substance use: No Advance Directives: No Advance Directives Information Provided: No Do you have a plan to hurt others: No Plan Physical Exam ED Vital Signs: Vital Signs - 24 hr 11/11/24 22:10 11/12/24 02:37 11/12/24 06:12 Temperature 98 F 98.1 F 98.6 F Pulse Rate 85 89 86 Respiratory Rate 16 18 16 Blood Pressure 136/94 H 123/84 133/71 Pulse Oximetry 96 98 99 Oxygen Delivery Method Room Air Room Air Room Air 11/12/24 11:33 Temperature 98.6 F Pulse Rate 86 Respiratory Rate 16 Blood Pressure 133/71 Pulse Oximetry 99 Oxygen Delivery Method Room Air BMI result Body Mass Index 23.7 Const Other: Alert well-appearing Orientation/consciousness: patient oriented x3 Resp Effort & Inspection: normal respiratory effort Cardio Other: Normal peripheral perfusion Skin Other: Warm dry no rash Neuro General: patient oriented x3, gait normal, no focal motor deficits and CN's II-XI intact bilaterally Psych Other: Cooperative, somewhat contradictory with his thought process. He makes comments about his significant other being a great manipulator, then states she is a good person in the next breath. Patient is also somewhat disorganized, he will be speaking about his significant other, then begin to speak about losing his housing and his apartment,and that he is on a list for housing. Course Reevaluation(s) Reevaluation #1: Time: 05:21 Date: 11/12/24 Provider: LEIGH Lombardi Patient in physician observation for psychiatric evaluation.? No acute events reported overnight. No current complaints. VS stable.? Patient is in bed search status/pending CARE team evaluation. Will continue to monitor. Reevaluation #2: Cleared for discharge by care team Time: 11:02 Medical Decision Making Medical Decision Making MDM Narrative: 34-year-old male with self report of anxiety, depression, alcohol use disorder, presents with emotional distress. Patient states he recently from his girlfriend, and that his anxiety and depression have worsened. When asked if the patient is having thoughts of self-harm, he states ?I love myself I won't hurt myself, but I know when I need to keep myself in check?. Problem: Anxiety depression and alcohol use disorder History: Per patient I have considered the following differential diagnoses: SI, HI, decompensated psychiatric illness, drug/alcohol intoxication Plan: Patient here requesting to speak with the care team, the way he speaks about his current emotional stress, potentially alludes to the fact that he may be vaguely suicidal. We will screen basic labs, serum ethanol and drug screen and referred to the care team I have independently reviewed the following tests: Labs: Differential Diagnosis Differential Diagnoses: The differential diagnosis associated with the presentation includes See medical decision-making Admission/Observation Consideration of admission/observation: Escalation of care including admission/observation considered Not applicable Consult Healthcare Provider Management of the patient was discussed with: Behavioral Health Provider Lab Data MDM Lab Attestation statement: I reviewed the patient's lab results. 11/12/24 01:13 11/12/24 01:13 Labs: Lab Results 11/12/24 11/12/24 Range/Units 01:13 01:30 WBC 5.4 (4.8-10.8) X10*3/uL RBC 4.72 (4.60-5.80) X10*6/uL Hgb 14.0 (14.0-18.0) g/dl Hct 39.2 L (42.0-52.0) % MCV 83.1 (80.0-98.0) fL MCH 29.7 (27.0-33.0) pg MCHC 35.7 (31.0-36.0) g/dl RDW 15.4 (11.0-16.0) % Plt Count 268 (160-400) X10*3/uL MPV 8.5 L (9.4-12.4) fL Immature Gran % (Auto) 0.2 (0.0-0.4) % Neut % (Auto) 54.3 (45-73) % Lymph % (Auto) 31.8 (20-40) % [place] % (Auto) 10.2 (2-11) % Eos % (Auto) 2.6 (0-4) % Baso % (Auto) 0.9 (0-2) % Lymph # (Auto) 1.7 (1.2-4.9) X10*3/uL [place] # (Auto) 0.6 (0.1-1.2) X10*3/uL Eos # (Auto) 0.1 (0.0-0.4) X10*3/uL Baso # (Auto) 0.1 (0.0-0.2) X10*3/uL Abs Immat Gran (auto) 0.01 (0.00-0.03) X10*3/uL Absolute Neuts (auto) 2.9 (2.0-8.3) x10*3/uL Absolute Nucleated RBC 0.000 (0.0-0.012) X10*3/uL Nucleated RBC % (auto) 0.0 (0.0-0.2) /100WBC Sodium 141 (135-145) mmol/L Potassium 4.2 (3.3-5.1) mmol/L Chloride 105 (96-108) mmol/L Carbon Dioxide 25 (22-29) mmol/L Anion Gap 15 (12-20) BUN 10 (9-16) mg/dL Creatinine 1.13 (0.5-1.4) mg/dL Estim Creat Clear Calc 96.2 Estimated GFR > 60 Random Glucose 101 (60-115) mg/dL Calcium 8.9 (8.4-10.2) mg/dL Magnesium 2.3 (1.6-2.6) mg/dL Total Bilirubin 1.3 H (0.0-1.0) mg/dL AST 128 H (5-37) U/L ALT 60 H (0-40) U/L Alkaline Phosphatase 69 (39-117) U/L Total Protein 7.4 (6.5-8.0) g/dL Albumin 4.7 (3.5-5.0) g/dL Salicylates < 5.0 L (15-30) mg/dL Urine Opiates Screen Not Detected (Not Detect) Ur Buprenorphine Scrn Not Detected (Not Detect) ng/mL Ur Oxycodone Screen Not Detected (Not Detect) ng/mL Urine Methadone Screen Not Detected (Not Detect) ng/mL Urine Fentanyl Screen Not Detected (Not Detect) Acetaminophen < 3 (<30) mcg/mL Ur Barbiturates Screen Not Detected (Not Detect) Ur Phencyclidine Scrn Not Detected (Not Detect) Ur Amphetamines Screen Not Detected (Not Detect) U Benzodiazepines Scrn Not Detected (Not Detect) Urine Cocaine Screen Not Detected (Not Detect) U Marijuana (THC) Screen POSITIVE H (Not Detect) Ethyl Alcohol 131 mg/dL Discharge Plan Discharge Clinical Impression: Alcohol abuse, Emotional stress Patient Disposition: Home, Self-Care Additional Instructions: You were seen in our Emergency Department today for treatment of a behavioral health issue. It is important after your visit that you follow up with either your behavioral health provider or a primary care doctor within 7 days.? If you have trouble finding a therapist you can reach out to [address] [phone] The National Suicide and Crisis Lifeline can be reached 7 days a week 24 hours a day.? Call 988 to speak with someone.? Return for any worsening symptoms or concerns such as thoughts of self harm or harm to others. Please call 911 if you feel your mental health is worsening.? Prescriptions: No Action No Known Home Meds Interventions: ED Discharge Assessment Last Done: 11/12/24 11:33 Discharge Date/Time: 11/12/24 11:34 Print Language: Citizen Of [place]
[2024-11-12 06:12] VITALS: BP 133/71; PULSE 86; RESP 16; TEMP 37; O2SAT 99
--- NOTE | 2024-11-12 07:21 | PC.NURSE ---
Addendum entered by Zeinab Petty RN 11/12/24 08:20: Patient is a 34-year-old male with self report of anxiety, depression, alcohol use disorder, presents with emotional distress. Patient states he recently from his girlfriend, and that his anxiety and depression have worsened. Alert and oriented. Respirations even and non-labored. Abdomen soft, non-tender with positive bowel sounds. Positive pedal pulses with no edema. Ambulates with a steady gait. Original Note: Medical History Alcohol abuse
--- NOTE | 2024-11-12 10:00 | PC.NURSE ---
CARE team evaluated.
--- NOTE | 2024-11-12 10:54 | MHC.CARE ---
Patient evaluated by the CARE Team, he does not require an inpatient psychiatric admission at this time. ED provider, Dr. Rico updated.
[2024-11-12 11:33] VITALS: BP 133/71; PULSE 86; RESP 16; TEMP 37; O2SAT 99
== END 2024-11-12 11:34 | disposition home or self-care (01) ==
PROVIDERS: Physician Assistant Medical; Emergency Provider Emergency Medicine
DX: F33.1 Major depressive disorder, recurrent, moderate (principal); F41.1 Generalized anxiety disorder; F43.0 Acute stress reaction; F43.9 Reaction to severe stress, unspecified; F10.129 Alcohol abuse with intoxication, unspecified; Y90.6 Blood alcohol level of 120-199 mg/100 ml; Z51.81 Encounter for therapeutic drug level monitoring; Z79.899 Other long term (current) drug therapy
CPT/HCPCS: 36415; 80053; 80143; 80179; 80307; 83735; 85025; 99284; S9485

== ENCOUNTER 2024-11-12 22:45 | Emergency (ER) | payer MEDICAID, SELFPAY ==
[2024-11-12 22:48] VITALS: BP 140/97; PULSE 110; O2SAT 97
--- OUTSIDE RECORDS SUMMARY | 2024-11-12 23:18 | XMS_ITS | Clinical Summary ---
Author Organization [facility] ity Address [address] [place] [address] Care Team Providers Care Director Of Accounts Payable Name Role Phone Unavailable Primary Care Provider [...]
--- OUTSIDE RECORDS SUMMARY | 2024-11-12 23:18 | XMS_ITS | Clinical Summary ---
Author Organization [employer] Address [address] [place] [address] Care Team Providers Care Special Machine Operator Name Role Phone Unavailable Primary Care Provider [...]
[2024-11-12 23:20] VITALS: BP 145/79; PULSE 118; RESP 18; TEMP 37.4; O2SAT 96; BMI 26.5
--- NOTE | 2024-11-13 00:01 | ED_ITS ---
HPI - General Adult General Chief complaint: General Medical Stated complaint: CRISIS Time Seen by Provider: 11/12/24 22:55 Source: patient Mode of arrival: ambulatory Limitations: other (refusing to answer questions) History of Present Illness ED Provider: Dr. Susana Sanchez HPI narrative: 34-year-old male with a history of anxiety, depression, alcohol use disorder, marijuana use presenting with continued emotional distress. Patient was discharged from this hospital yesterday morning after being seen for anxiety and depression after from his girlfriend. Patient is refusing to tell me why he comes to the hospital today. States ?it is the same thing as yesterday?. Denies feeling suicidal or homicidal. States ?frankly if I wanted to kill myself I would not come here?. States ?this is a preventative measure?. Denies visual or auditory hallucinations. Admits to daily alcohol use, last drink was Tequila about an hour prior to arrival. He also admits to marijuana use. Denies other illicit substance use. Reports he is supposed to be taking medications for anxiety but does not know what medications he is supposed to take. Denies physical illness. Admits he is feeling anxious about his living situation. Related Data Home Medications ?Medication ?Instructions ?Recorded ?Confirmed No Known Home Meds 10/24/22 10/24/22 Allergies Allergy/AdvReac Type Severity Reaction Status Date / Time shellfish derived Allergy Anaphylaxis Verified 11/12/24 23:24 Review of Systems 2 Review of Systems: as per HPI, full review of systems performed and negative but for the above mentioned pertinent positives and negatives. [facility] Past Medical History Medical History Alcohol abuse Social History Social History Alcohol intake: current Alcohol intake frequency: a few times a week Alcohol type: hard liquor Smoked in Last 30 Days: Yes Use of substances other than those prescribed or required for medical reasons: Yes Substance Use Type: Marijuana Advance Directives: No Advance Directives Information Provided: No Do you have a plan to hurt others: No Plan Physical Exam ED Exam Exam: GENERAL: Unkempt, no acute distress. SKIN: Normal skin color for ethnicity, warm, dry, no rashes noted. HEENT:? Normocephalic, atraumatic, no stridor, posterior oropharynx nonerythematous, dentition intact, EOMI. NECK: Soft, supple, full ROM, midline structures nontender, no step-offs, no deformities, no lymphadenopathy. CHEST: Heart regular rate and rhythm, no murmurs, symmetric chest rise and fall. PULMONARY: Clear to auscultation bilaterally, no labored breathing, no wheezes/rhales/rhonchi. ABDOMINAL: Soft, nondistended, nontender, positive bowel sounds in all quadrants. : Deferred. MUSCULOSKELETAL: Normal tone, full range of motion, no deformities, no peripheral edema. NEURO: Alert and oriented x3, CN II through XII intact, equal strength and sensation bilateral upper and lower extremities, no focal neurologic deficits.? PSYCHIATRIC: Flat affect, poor eye contact, withdrawn Vital Signs: Vital Signs - 24 hr 11/12/24 23:20 11/13/24 05:58 Temperature 99.3 F 98.3 F Pulse Rate 118 H 78 Respiratory Rate 18 Blood Pressure 145/79 H 133/84 Pulse Oximetry 96 98 Oxygen Delivery Method Room Air Room Air BMI result Body Mass Index 26.5 Course Reevaluation(s) Reevaluation #1: 34-year-old male homeless, has been frequently coming to the emergency department, currently patient has no SI, no HI, no hallucination patient was given shelters list to contact and try to get into [facility]. Time: 09:19 Medications Administered Discontinued Medications Generic Name Dose Route Start Last Admin Trade Name Freq PRN Reason Stop Dose Admin Magnesium Oxide 400 mg 11/13/24 05:54 11/13/24 06:00 Magnesium Oxide 400 Mg Tablet PO 11/13/24 05:55 400 mg ONCE ONE Administration Medical Decision Making Medical Decision Making MDM Narrative: Patient presents with psychologic complaints. Differential diagnosis includes suicidal ideations, homicidal ideations, depression, anxiety, mood disorder, decompensated mental illnesses such as schizophrenia or bipolar disorder, medication noncompliance, malingering, housing insecurity, among many others. Medical clearance protocol was initiated. Very low suspicion for suicidality however her, patient is being somewhat evasive with his responses. He was cleared for discharge yesterday however, returns for care team evaluation again today. Sign out to oncoming team pending care team evaluation and final disposition. Differential Diagnosis Differential Diagnoses: The differential diagnosis associated with the presentation includes (As above) Admission/Observation Consideration of admission/observation: Escalation of care including admission/observation considered Lab Data [facility] Lab Attestation statement: I reviewed the patient's lab results. 11/13/24 01:11 11/13/24 01:11 Labs: Lab Results 11/13/24 Range/Units 01:11 WBC 7.1 (4.8-10.8) X10*3/uL RBC 4.86 (4.60-5.80) X10*6/uL Hgb 14.4 (14.0-18.0) g/dl Hct 40.9 L (42.0-52.0) % MCV 84.2 (80.0-98.0) fL MCH 29.6 (27.0-33.0) pg MCHC 35.2 (31.0-36.0) g/dl RDW 15.0 (11.0-16.0) % Plt Count 290 (160-400) X10*3/uL MPV 8.8 L (9.4-12.4) fL Immature Gran % (Auto) 0.1 (0.0-0.4) % Neut % (Auto) 62.1 (45-73) % Lymph % (Auto) 26.4 (20-40) % [place] % (Auto) 8.9 (2-11) % Eos % (Auto) 1.8 (0-4) % Baso % (Auto) 0.7 (0-2) % Lymph # (Auto) 1.9 (1.2-4.9) X10*3/uL [place] # (Auto) 0.6 (0.1-1.2) X10*3/uL Eos # (Auto) 0.1 (0.0-0.4) X10*3/uL Baso # (Auto) 0.1 (0.0-0.2) X10*3/uL Abs Immat Gran (auto) 0.01 (0.00-0.03) X10*3/uL Absolute Neuts (auto) 4.4 (2.0-8.3) x10*3/uL Absolute Nucleated RBC 0.000 (0.0-0.012) X10*3/uL Nucleated RBC % (auto) 0.0 (0.0-0.2) /100WBC Sodium 142 (135-145) mmol/L Potassium 3.9 (3.3-5.1) mmol/L Chloride 106 (96-108) mmol/L Carbon Dioxide 21 L (22-29) mmol/L Anion Gap 19 (12-20) BUN 12 (9-16) mg/dL Creatinine 1.17 (0.5-1.4) mg/dL Estim Creat Clear Calc 90.1 Estimated GFR > 60 Random Glucose 109 (60-115) mg/dL Calcium 9.2 (8.4-10.2) mg/dL Total Bilirubin 1.5 H (0.0-1.0) mg/dL AST 164 H (5-37) U/L ALT 98 H (0-40) U/L Alkaline Phosphatase 73 (39-117) U/L Total Protein 8.2 H (6.5-8.0) g/dL Albumin 5.1 H (3.5-5.0) g/dL Independent Historian Clinical information obtained from an independent historian. History obtained from or confirmed by: EMS External Record Review External record reviewed: Inpatient record Chronic Conditions Patient?s care impacted by: Other (alcohol use, depression, anxiety) Social Determinants Patient?s care significantly limited by Social Determinants of Health including: Inadequate housing, Problems related to primary support group and Other Social Determinant of Health Discharge Plan Discharge Clinical Impression: Anxiety and depression, Homelessness Patient Disposition: Home, Self-Care Instructions: Anxiety (ED) Prescriptions: No Action No Known Home Meds Referrals: [facility] [Primary Care Provider, Medical] Print Language: Bruneian
[2024-11-13 01:15] LABS: MANUAL DIFF FLAG NO
[2024-11-13 01:16] LABS: Hematocrit 40.9 % (42.0-52.0); Hemoglobin 14.4 g/dl (14.0-18.0); Imm Gran Abs Auto 0.01 X10*3/uL (0.00-0.03); Imm Gran Pct Auto 0.1 % (0.0-0.4); Lymphocytes Absolute Auto 1.9 X10*3/uL (1.2-4.9); Mean Corpuscular HGB Conc 35.2 g/dl (31.0-36.0); Mean Corpuscular Hemoglobin 29.6 pg (27.0-33.0); Mean Corpuscular Volume 84.2 fL (80.0-98.0); NRBC Abs Auto 0.000 X10*3/uL (0.0-0.012); NRBC Pct Auto 0.0 /100WBC (0.0-0.2); Platelet Count 290 X10*3/uL (160-400); Red Blood Count 4.86 X10*6/uL (4.60-5.80); White Blood Count 7.1 X10*3/uL (4.8-10.8)
[2024-11-13 01:43] LABS: Alanine Aminotransferase 98 U/L (0-40); Albumin Level 5.1 g/dL (3.5-5.0); Alkaline Phosphatase 73 U/L (39-117); Anion Gap 19 (12-20); Aspartate Amino Transferase 164 U/L (5-37); Blood Urea Nitrogen 12 mg/dL (9-16); Calcium 9.2 mg/dL (8.4-10.2); Carbon Dioxide 21 mmol/L (22-29); Chloride 106 mmol/L (96-108); Creatinine Clr Calc Pharmacy 90.1; Estimated Glomerular Filt Rate > 60; Potassium 3.9 mmol/L (3.3-5.1); Sodium 142 mmol/L (135-145); Total Protein 8.2 g/dL (6.5-8.0)
[2024-11-13 05:58] VITALS: BP 133/84; PULSE 78; TEMP 36.8; O2SAT 98
--- NOTE | 2024-11-13 09:09 | PC.NURSE ---
care team at bedside
[2024-11-13 09:50] VITALS: BP 157/97; PULSE 91; RESP 20; TEMP -17.7; TEMP 0; O2SAT 97
== END 2024-11-13 09:51 | disposition home or self-care (01) ==
PROVIDERS: Emergency Provider Emergency Medicine
DX: F41.9 Anxiety disorder, unspecified (principal); F32.A Depression, unspecified; Z59.00 Homelessness unspecified; F10.20 Alcohol dependence, uncomplicated
CPT/HCPCS: 36415; 80053; 85025; 99284; S9485